=== PATIENT | female | born 1975 | race African-American/Black ===

== ENCOUNTER 2017-07-12 10:31 | Emergency (ER) | payer MEDICAID ==
[~2017-07-12] VITALS: Ht 152.4 cm; Wt 43.0 kg
[~2017-07-12 10:31] MED LIST: FLOV44AE INH
[2017-07-12 10:33] VITALS: BP 175/95; PULSE 87; RESP 18; TEMP 98.2; O2SAT 99
[2017-07-12] MEDS ORDERED: SODIUM CHLORIDE 0.9% FLUSH 10 ML FLUSH IVF PRN (11:00)
[2017-07-12 11:07] VITALS: BP 157/92; PULSE 73; RESP 18; O2SAT 100
--- NOTE | 2017-07-12 11:08 | PD ---
HPI Chief Complaint: Chest Pain Time Seen by Provider: 10:50 Travel History International Travel<30 days: No Contact w/Intl Traveler<30days: No Traveled to known affect area: No History of Present Illness HPI Patient comes in complaining of sharp chest pain over her left pectoralis area, rated 6 out of 10, nonradiating, ongoing for the past 2 days. Denies any alleviating or aggravating factors. Denies any associated factors such as fever productive cough, nausea, vomiting, diarrhea, abdominal pain, back pain, at this time. all:pcn g pcp: [facility] pmhx/pshx: pna, asthma, heart valve repair?, btl, csection PFSH Past Medical History Asthma: Yes Cardiovascular Problems: Yes Diminished Hearing: No Respiratory: Yes (BRONCHITIS ) Immunizations Current: Yes Tetanus Vaccination: < 5 Years Influenza Vaccination: No ?: Not LMP: 07/02/17 Menopausal: No : 3 Para: 3 Tubal Ligation: Yes Past Surgical History Cardiac Surgery: Yes (" IN HAD A VALVE CLOSED") Section: Yes (X 3) Gynecologic Surgery: Yes Social History Alcohol Use: No Tobacco Use: No Substance Use: No Allergies-Medications (Allergen,Severity, Reaction): Coded Allergies: penicillin G (Unverified Allergy, Severe, wheeze, rash, cough, 07/12/17) chocolate flavor (Unverified Allergy, Mild, hives, 07/12/17) Reported Meds & Prescriptions Reported Meds & Active Scripts Active No Active Prescriptions or Reported Medications Review of Systems Except as stated in HPI: all other systems reviewed are Neg General / Constitutional: No: Fever Eyes: No: Visual changes HENT: No: Headaches Cardiovascular: Positive: Chest Pain or Discomfort Respiratory: No: Shortness of Breath Gastrointestinal: No: Abdominal Pain Genitourinary: No: Dysuria Musculoskeletal: No: Pain Skin: No Rash Neurologic: No: Weakness Psychiatric: No: Depression Endocrine: No: Polydipsia Hematologic/Lymphatic: No: Easy Bruising Physical Exam Narrative GENERAL: SKIN: Warm and dry. HEAD: Atraumatic. Normocephalic. EYES: Pupils equal and round. No scleral icterus. No injection or drainage. ENT: No nasal bleeding or discharge. Mucous membranes pink and moist. NECK: Trachea midline. No JVD. CARDIOVASCULAR: Regular rate and rhythm. RESPIRATORY: No accessory muscle use. Clear to auscultation. Breath sounds equal bilaterally. GASTROINTESTINAL: Abdomen soft, non-tender, nondistended. MUSCULOSKELETAL: Extremities without clubbing, cyanosis, or edema. No obvious deformities. reproducible chest wall pain over left pectoralis major region NEUROLOGICAL: Awake and alert. No obvious cranial nerve deficits. Motor grossly within normal limits. Five out of 5 muscle strength in the arms and legs. Normal speech. PSYCHIATRIC: Appropriate mood and affect; insight and judgment normal. Data Data Last Documented VS Vital Signs Date Time Temp Pulse Resp B/P (MAP) Pulse Ox O2 Delivery O2 Flow Rate FiO2 07/12/17 12:00 76 18 148/81 (103) 100 Nasal Cannula 2.00 07/12/17 10:33 98.2 Orders Orders Electrocardiogram (07/12/17 10:58) B-Type Natriuretic Peptide (07/12/17 10:58) Ckmb (Isoenzyme) Profile (07/12/17 10:58) Complete Blood Count With Diff (07/12/17 10:58) Comprehensive Metabolic Panel (07/12/17 10:58) D-Dimer (07/12/17 10:58) Prothrombin Time / Inr (Pt) (07/12/17 10:58) Act Partial Throm Time (Ptt) (07/12/17 10:58) Troponin I (07/12/17 10:58) Lipase (07/12/17 10:58) Chest, Single Ap (07/12/17 10:58) Ecg Monitoring (07/12/17 10:58) Iv Access Insert/Monitor (07/12/17 10:58) Oximetry (07/12/17 10:58) Oxygen Administration (07/12/17 10:58) Sodium Chloride 0.9% Flush (Ns Flush) (07/12/17 11:00) CKMB (07/12/17 11:00) CKMB% (07/12/17 11:00) Ct Pulmonary Angiogram (07/12/17 12:30) Iohexol 350 Inj (Omnipaque 350 Inj) (07/12/17 13:01) Labs Laboratory Tests Test 07/12/17 11:00 White Blood Count 7.2 TH/MM3 Red Blood Count 5.12 MIL/MM3 Hemoglobin 13.7 GM/DL Hematocrit 39.4 % Mean Corpuscular Volume 76.9 FL Mean Corpuscular Hemoglobin 26.8 PG Mean Corpuscular Hemoglobin Concent 34.8 % Red Cell Distribution Width 14.6 % Platelet Count 319 TH/MM3 Mean Platelet Volume 8.2 FL Neutrophils (%) (Auto) 42.5 % Lymphocytes (%) (Auto) 40.3 % Monocytes (%) (Auto) 7.6 % Eosinophils (%) (Auto) 9.0 % Basophils (%) (Auto) 0.6 % Neutrophils # (Auto) 3.1 TH/MM3 Lymphocytes # (Auto) 2.9 TH/MM3 Monocytes # (Auto) 0.6 TH/MM3 Eosinophils # (Auto) 0.6 TH/MM3 Basophils # (Auto) 0.0 TH/MM3 CBC Comment DIFF FINAL Differential Comment Prothrombin Time 10.7 SEC Prothromb Time International Ratio 1.1 RATIO Activated Partial Thromboplast Time 25.5 SEC D-Dimer Quantitative (PE/DVT) 0.95 MG/L FEU Blood Urea Nitrogen 9 MG/DL Creatinine 0.68 MG/DL Random Glucose 95 MG/DL Total Protein 7.8 GM/DL Albumin 3.7 GM/DL Calcium Level 9.2 MG/DL Alkaline Phosphatase 101 U/L Aspartate Amino Transf (AST/SGOT) 18 U/L Alanine Aminotransferase (ALT/SGPT) 19 U/L Total Bilirubin 0.5 MG/DL Sodium Level 141 MEQ/L Potassium Level 4.2 MEQ/L Chloride Level 106 MEQ/L Carbon Dioxide Level 27.3 MEQ/L Anion Gap 8 MEQ/L Estimat Glomerular Filtration Rate 115 ML/MIN Total Creatine Kinase 151 U/L Creatine Kinase MB 1.1 NG/ML Troponin I LESS THAN 0.02 NG/ML B-Type Natriuretic Peptide 34 PG/ML Lipase 162 U/L [facility] Medical Decision Making Medical Screen Exam Complete: Yes Emergency Medical Condition: Yes Medical Record Reviewed: Yes Interpretation(s) EKG: Normal sinus rhythm, rate 70, LVH, normal intervals, no STEMI pattern noted. Pulse ox: Excellent PLETH wave, 97% on room air which is within normal limits Differential Diagnosis PNA V CHEST WALL PAIN V PE V ATYPICAL STEMI Narrative Course Patient CBC was negative for any anemia or leukocytosis. CMP was within normal limits for liver kidney function. No electrolyte abnormalities. Coagulation factors were within normal limits with the exception of an elevated d-dimer so the patient was ordered for a CT chest to rule out PE. CT chest was read as negative for PE however it did show some airspace consolidation patchy consolidation consistent with pneumonia patient will be treated accordingly Diagnosis Primary Impression: PLEURITIC CP DUE TO PNA Patient Instructions: Bacterial Pneumonia (DC), General Instructions Scripts Ketorolac (Ketorolac) 10 Mg Tab 10 MG PO TID Y for Pain Management for 5 Days, #15 TAB 0 Refills Prov: Alen Thomas MD 07/12/17 Ciprofloxacin (Cipro) 500 Mg Tab 500 MG PO BID for Infection for 7 Days, #14 TAB 0 Refills Prov: Alen Thomas MD 07/12/17 Disposition: 01 DISCHARGE HOME Condition: Stable Alen Thomas MD Jul 12, 2017 11:08
[2017-07-12 11:52] LABS: ALT (GPT) 19 U/L (10-53)
[2017-07-12 11:53] LABS: INTERNATIONAL NORMALIZED RATIO 1.1 RATIO; PROTHROMBIN TIME - PATIENT 10.7 SEC (9.8-11.6)
[2017-07-12 11:54] LABS: ALBUMIN 3.7 GM/DL (3.4-5.0); AST (GOT) 18 U/L (15-37); BICARBONATE 27.3 MEQ/L (21.0-32.0); BLOOD UREA NITROGEN 9 MG/DL (7-18); CALCIUM 9.2 MG/DL (8.5-10.1); CHLORIDE 106 MEQ/L (98-107); CREATININE 0.68 MG/DL (0.50-1.00); D-DIMER 0.95 MG/L FEU (0.00-0.50); GLOMERULAR FILTRATION RATE 115 ML/MIN (>89); GLUCOSE,RANDOM 95 MG/DL (74-106); SODIUM (NA) 141 MEQ/L (136-145)
[2017-07-12 11:57] LABS: ALKALINE PHOSPHATASE 101 U/L (45-117); TOTAL BILIRUBIN ADULT 0.5 MG/DL (0.2-1.0); TOTAL PROTEIN 7.8 GM/DL (6.4-8.2); TROPONIN I LESS THAN 0.02 NG/ML (0.02-0.05)
--- NOTE | 2017-07-12 11:57 | RADRPT ---
EXAM DATE/TIME: 07/12/2017 11:19 [facility] COMPARISON: CHEST SINGLE AP, December 03, 2014, 0:50. INDICATIONS : Chest pain. MEDICAL HISTORY : None. SURGICAL HISTORY : surgery as a child to close her heart valve ENCOUNTER: Initial ACUITY: 1 day PAIN SCORE: 5/10 LOCATION: Bilateral chest FINDINGS: A single AP erect portable view of the chest was obtained and demonstrates streaky opacity in the lef t lung base which appears similar to the prior study. There is stable blunting of the left lateral co stophrenic angle. There are no new confluent infiltrates or effusions. The heart size remains within normal limits. There may be mild volume loss in left hemithorax. The bony structures are intact. CONCLUSION: Streaky stable opacity in the left lung base with stable blunting of the left costophrenic angle most characteristic of scarring. Caio Taylor MD on July 12, 2017 at 11:53 Board Certified Radiologist. This report was verified electronically.
[2017-07-12 12:00] VITALS: BP 148/81; PULSE 76; RESP 18; O2SAT 100
[2017-07-12 12:34] LABS: AUTOMATED NEUTROPHIL # 3.1 TH/MM3 (1.8-7.7); BASOPHIL % 0.6 % (0.0-2.0); EOSINOPHIL # 0.6 TH/MM3 (0-0.4); HEMATOCRIT 39.4 % (35.0-46.0); HEMOGLOBIN 13.7 GM/DL (11.6-15.3); LYMPH % 40.3 % (9.0-44.0); LYMPHOCYTE # 2.9 TH/MM3 (1.0-4.8); MEAN CELL VOLUME 76.9 FL (80.0-100.0); MEAN CORPUSCULAR HEMOGLOBIN 26.8 PG (27.0-34.0); MEAN CORPUSCULAR HGB CONC 34.8 % (32.0-36.0); MEAN PLATELET VOLUME 8.2 FL (7.0-11.0); MONO % 7.6 % (0.0-8.0); MONOCYTE # 0.6 TH/MM3 (0-0.9); NEUT % 42.5 % (16.0-70.0); PLATELET COUNT 319 TH/MM3 (150-450); RED BLOOD COUNT 5.12 MIL/MM3 (4.00-5.30); RED CELL DISTRIBUTION WIDTH 14.6 % (11.6-17.2); WHITE BLOOD COUNT 7.2 TH/MM3 (4.0-11.0)
[2017-07-12 13:00] VITALS: BP 150/81; PULSE 74; RESP 18; O2SAT 100
[2017-07-12] MEDS ORDERED: IOHEXOL 350 MG/ML 10 ML VIAL (for RAD DIAG) IVCONTRAST ONE (13:01)
--- NOTE | 2017-07-12 13:57 | RADRPT ---
EXAM DATE/TIME: 07/12/2017 12:56 [facility] COMPARISON: No previous studies available for comparison. INDICATIONS : Left sided chest pain, nausea. IV CONTRAST: cc Omnipaque 350 (iohexol) IV RADIATION DOSE: 4.06 CTDIvol (mGy) MEDICAL HISTORY : Asthma SURGICAL HISTORY : Tubal ligation. Cardiac valve as a child ENCOUNTER: Initial ACUITY: 2 days PAIN SCALE: 7/10 LOCATION: Left chest TECHNIQUE: Volumetric scanning of the chest was performed using a pulmonary embolism protocol MIP images were re constructed. Using automated exposure control and adjustment of the mA and/or kV according to patien t size, radiation dose was kept as low as reasonably achievable to obtain optimal diagnostic quality images. DICOM format image data is available electronically for review and comparison. Follow-up recommendations for detected pulmonary nodules are based at a minimum on nodule size and pa tient risk factors according to Fleischner Society Guidelines. FINDINGS: PULMONARY ARTERIES: No filling defects are seen in the pulmonary arteries through the segmental level. LUNGS: Patchy airspace disease and intralobular septal thickening and volume loss in the left lung base. The re is also subtle subpleural nodular intralobular septal thickening. PLEURAE: There is no pleural thickening or pleural effusion. MEDIASTINUM: And AP window nodes measuring up to 12 mm. Subcarinal tresa prominence. There is also left hilar skye opathy/mass measuring approximately 2.7 x 2.2 cm. There is posterior paraesophageal soft tissue promi nence measuring 1.8 x 2.1 cm with unusual pattern of enhancement anteriorly. Heart appears unremarkab le without significant pericardial effusion. MUSCULOSKELETAL: Within normal limits for patient age. MISCELLANEOUS: The visualized upper abdominal organs demonstrate no acute abnormality. CONCLUSION: 1. Patchy airspace disease and intralobular septal thickening most prominently in the left lower lung zone with associated left hilar adenopathy and likely inflammatory posterior mediastinal adenopathy. Overall findings are most consistent with an infectious/inflammatory etiology. However, recommend fo llowup examination following completion of appropriate course of treatment to exclude other etiologie s for adenopathy/hilar mass. 2. No CT evidence for pulmonary artery embolism. Edmundo Aguayo MD on July 12, 2017 at 13:09 Board Certified Radiologist. This report was verified electronically.
[2017-07-12] MEDS ORDERED: CIPR-9 PO (14:16)
[2017-07-12] MEDS ORDERED: KETO10 PO (14:16)
[2017-07-12 14:29] VITALS: BP 161/77
--- NOTE | 2017-07-12 19:40 | EKG ---
Date Performed: 07/12/2017 Time Performed: 10:45:34 PTAGE: 42 years EKG: Sinus rhythm MINIMAL VOLTAGE CRITERIA FOR LVH, CONSIDER NORMAL VARIANT BORDERLINE ECG INTERPRETATION BASED ON A D EFAULT AGE OF 40 YEARS Since the prior tracing, there has been no significant change PREVIOUS TRACING : 12/22/2014 20.09 DOCTOR: Esvin aWgner Interpretating Date/Time 07/12/2017 19:39:28
== END 2017-07-12 14:44 | disposition home or self-care (01) ==
LOC: NEPC 10:31
DX: J18.9 Pneumonia, unspecified organism (principal); R07.81 Pleurodynia; R94.31 Abnormal electrocardiogram [ECG] [EKG]; J45.909 Unspecified asthma, uncomplicated; Z87.74 Personal history of (corrected) congenital malformations of heart and circulatory system
CPT/HCPCS: 71045; 71275; 80053; 82550; 82552; 83690; 83880; 84484; 85025; 85379; 85610; 85730; 93005; 99285; Q9967